=== PATIENT | male | born 1960 | race Caucasian/White ===

== ENCOUNTER → 2017-01-14 | Outpatient (CLI) | payer OTHER ==
--- NOTE | 2017-01-14 15:04 | RAD ---
EXAM DESCRIPTION: Knee,Left Complete CLINICAL HISTORY: 56 years, Male, KNEE PAIN COMPARISON: None available FINDINGS: Prior surgery involving the medial femoral condyle with two orthopedic eunice extending from the medial surface laterally. Some chronic appearing soft tissue calcification, about 8 mm, inferior surgical site. Fairly advanced narrowing of the lateral joint compartment with some irregularity femoral articular surface. Patellofemoral joint space shows moderate narrowing with superiolaterally spurring. IMPRESSION: Postsurgical and degenerative-type changes. No acute bony injury. Electronically signed by: Harpreet Zelaya MD 01/14/2017 3:03 PM CDT
--- NOTE | 2017-01-14 15:05 | RAD ---
EXAM DESCRIPTION: Pelvis CLINICAL HISTORY: 56 years, Male, HIP PAIN COMPARISON: None. FINDINGS: No fracture or dislocation. Mild degenerative narrowing of both hips more on the right. IMPRESSION: Degenerative change without fracture or dislocation Electronically signed by: Harpreet Zelaya MD 01/14/2017 3:04 PM CDT
== END | disposition home or self-care (01) ==
LOC: RAD 08:14
PROVIDERS: ATTEND Orthopaedic Surgery
DX: M25.562 Pain in left knee (principal); M25.552 Pain in left hip

== ENCOUNTER → 2018-04-03 | Outpatient (CLI) | payer OTHER ==
--- NOTE | 2018-04-03 15:56 | MRI ---
EXAM DESCRIPTION: Cervical Spine: MRI. CLINICAL HISTORY: PARESTHESIA OF SKIN COMPARISON: Noncontrast MRI scan of the brain. TECHNIQUE: Multiplanar MRI, multiple sequences, non-contrast High-field. FINDINGS: C2-3: Normal signal in the disc. Disc space preserved. Arthrosis on the left with mild narrowing of the left neural foramen. Right neuroforamen and canal are patent. C3-4: Moderate disc space loss with anterior disc bulge and endplate ridging. Type II endplate reactive changes anterior C3 endplate. Grade 1 retrolisthesis. Posterior endplate spur and disc protrusion 4 to 5 mm impressing the ventral cord. Posterior flavum ligaments impressing the posterior cord with mild compression and edema in the cord. Bilateral uncinate spurs. Right side Modic type II endplate reactive changes with neural foraminal stenosis. Moderate right neural foraminal narrowing. ACDF C4-C6. Bilateral fusion screws at C4 and C6. Mild canal narrowing at C4-5 with foraminal patent. Fusion of the facets. Interbody fusion device with almost complete osseous fusion. Small spur posteriorly at C5-C6 to the right of midline abutting the right ventral cord. Osseous fusion with no interbody fusion device. Posterior facets are partially fused. Bilateral foramina are patent. C6-7: Moderate disc space loss and grade 1 retrolisthesis. Posterior disc osteophyte complex bulge abutting the midline ventral cord and the right ventral cord. Right paracentral mild canal stenosis. Bilateral uncinate spurs with right neural foraminal stenosis and borderline left neural foraminal stenosis. C7-T1: Disc desiccation and tiny posterior disc bulge with disc space preserved. Left facet arthrosis. Borderline right neural foraminal stenosis. Mild left neural foraminal narrowing. T1-2: Disc desiccation minimal disc space loss. Anterior disc bulging. Trace anterolisthesis. Posterior broad-based bulge abutting the cord. Mild canal narrowing. Bilateral foramina are patent. Facets and ligaments unremarkable. Spinal alignment upper spine minimally kyphotic.. No cord compression or cord edema. Atlantoaxial joint is hypertrophied. Base of the cerebellar tonsils is at the level of the foramen magnum. Paravertebral soft tissues negative. Vertebral bodies are not compressed at any level. Normal remaining marrow signal in the remaining vertebral bodies and the posterior elements. IMPRESSION: 1. ACDF C4-C6. Interbody fusion devices C4-5. Both disc spaces almost fused with interosseous material. Small spur posteriorly to the right of midline C5-6 abutting the cord. No canal or foraminal stenosis. 2. Posterior C3-4 spondylosis and disc osteophyte complex protruding 4 to 5 mm and impressing the ventral cord with canal stenosis and mild cord compression and cord edema. Right side moderate spondylosis and right neural foraminal stenosis. Borderline left neural foraminal stenosis. 3. Grade 1 retrolisthesis C6-7. Right neural foraminal stenosis and borderline left neural foraminal stenosis. Posterior disc osteophyte complex bulge abutting the cord. Right paracentral mild canal stenosis. Electronically signed by: Kevin Ramires MD 04/03/2018 3:54 PM CDT
--- NOTE | 2018-04-03 16:13 | MRI ---
EXAM DESCRIPTION: Brain w/wo Contrast: Magnetic Resonance Imaging. CLINICAL HISTORY: PARESTHESIA OF SKIN COMPARISON: MRI scan cervical spine on this visit. TECHNIQUE: Multiplanar, high-field MRI, multiple conventional sequences, without and with gadolinium IV contrast. No adverse reactions. Multiple axial diffusion sequences. FINDINGS: Very small focus of hyperintense gradient echo, FLAIR, and T2 signal in the left frontoparietal junction near the vertex. Focal diffusion restriction. Dark on T1 sequence and no contrast enhancement. Small foci of hyperintense FLAIR and T2-weighted signal in the periventricular white matter abutting the frontal horns, and maloney-white matter junctions of the right insula. . Also subcortical white matter in the supraventricular bilateral frontal lobes. No hemorrhage, no abnormal contrast enhancement, and no diffusion restriction. Normal signal in the bilateral basal ganglia. No hemorrhage, no cerebral edema, no diffusion restriction. Normal contrast enhancement. Normal signal in the brainstem and cerebellar hemispheres. No hemorrhage, no cerebral edema, no diffusion restriction. Normal contrast enhancement. Concordance of the diffusion and non-diffusion sequences with no evidence of acute or subacute infarction. Cortical sulci, ventricles, and other CSF spaces, and the subdural spaces are normally configured for patients age.. No effacement or displacement. No midline shift. No extra-axial hemorrhage. Normal contrast enhancement. Normal flow signal void in the major vessels of the [place], and the venous sinuses. IACs are symmetric bilaterally. Normal signal in the bilateral mastoid air cells. No mass effect in the bilateral Cerebellopontine angles. Normal contrast enhancement. Pituitary gland occupies most of the sella. Normal contrast enhancement. Base of the cerebellar tonsils is at the level of the foramen magnum. Diffuse mucoperiosteal thickening involving the frontal sinuses, ethmoid air cells, maxillary antrum and right sphenoid air cell with air-fluid levels in the ethmoid air cells.. The bony calvarium is intact. IMPRESSION: 1. Tiny focus of diffusion restriction in the parasagittal left frontoparietal junction subcortical white matter near the vertex. Hyperintense on gradient echo, T2, and FLAIR sequences. No contrast enhancement. No hemorrhage. This is consistent with a subacute ischemic event. 2. other white matter abnormalities not associated with diffusion restriction or contrast enhancement in the right insula and abutting the frontal horns in the periventricular white matter.. Consistent with early cerebral microvascular disease most likely. No hemorrhage. 3. Acute and chronic paranasal sinusitis. Electronically signed by: Kevin Ramires MD 04/03/2018 4:12 PM CDT
== END ==
LOC: MRI 13:58
PROVIDERS: ATTEND Family Medicine
DX: R20.2 Paresthesia of skin (principal); R29.898 Other symptoms and signs involving the musculoskeletal system; M48.02 Spinal stenosis, cervical region; M50.223 Other cervical disc displacement at C6-C7 level; M43.12 Spondylolisthesis, cervical region; Z98.1 Arthrodesis status

== ENCOUNTER → 2020-05-29 | Outpatient (CLI) | payer OTHER | LOC: GMAL 10:39 | PROVIDERS: ATTEND Family Medicine | DX: E55.9 Vitamin D deficiency, unspecified (principal); Z79.899 Other long term (current) drug therapy ==

== ENCOUNTER → 2020-08-14 | Outpatient (CLI) | payer OTHER | LOC: GMAL 17:02 | PROVIDERS: ATTEND Family Medicine | DX: Z12.5 Encounter for screening for malignant neoplasm of prostate (principal); D51.8 Other vitamin B12 deficiency anemias; E55.9 Vitamin D deficiency, unspecified ==